=== PATIENT | female | born 2000 | race Caucasian/White ===

== ENCOUNTER 2025-09-27 13:41 | Emergency (ER) | payer OTHER ==
[~2025-09-27] VITALS: Ht 165.1 cm; Wt 64.2 kg
[2025-09-27 14:50] LABS: BASO # 0.0 10^3/uL (0.0-0.2); BASO % 0.6 % (0.0-1.0); EOS # 0.1 10^3/uL (0.0-0.5); EOS % 0.7 % (0.0-3.0); LYMPH # 0.9 10^3/uL (1.5-5.0); LYMPH % 14.0 % (24.0-44.0); MONO # 0.4 10^3/uL (0.0-0.8); MONO % 6.4 % (2.0-8.0); NEUTROPHILS # 5.3 10^3/uL (1.5-8.5); NEUTROPHILS % 78.2 % (36.0-66.0); PLATELET COUNT, AUTOMATED 254 10^3/uL (150-450)
[2025-09-27 15:09] LABS: CALCIUM LEVEL 8.7 MG/DL (8.5-10.1); CARBON DIOXIDE LEVEL 27 MMOL/L (20-31); CHLORIDE LEVEL 104 MMOL/L (98-107); CREATININE FOR GFR 0.60 MG/DL (0.55-1.30); GLOMERULAR FILTRATION RATE > 90.0 (>60); POTASSIUM SERUM 3.9 MMOL/L (3.5-5.1); SODIUM LEVEL 141 MMOL/L (136-145)
[2025-09-27 15:16] LABS: HCG, SERUM QUALITATIVE NEGATIVE (NEGATIVE)
[2025-09-27 15:57] VITALS: TEMP 98.1; O2SAT 98
[2025-09-27] MEDS: NS (Normal Saline) 0.9% 1,000 ML IV ONE (16:15)
[2025-09-27] MEDS: ONDANSETRON 4MG/2ML VIAL IV ONE (16:15)
[2025-09-27] MEDS: PANTOPRAZOLE 40MG VIAL IV ONE (16:15)
[2025-09-27 16:36] LABS: ALT/SGPT 19 U/L (7.0-40); AST/SGOT 22 U/L (<34)
[2025-09-27] MEDS ORDERED: ONDA-282 PO (17:47)
[2025-09-27] MEDS ORDERED: PROT20TA11 PO (17:47)
[2025-09-27] MEDS: ONDANSETRON 4MG ORAL DISINTEGRATING TAB PO ONE (17:50)
[2025-09-27 18:01] VITALS: BP 107/51
== END 2025-09-27 18:05 | disposition home or self-care (01) ==
LOC: M ED 13:41
DX: F10.120 Alcohol abuse with intoxication, uncomplicated (principal); R11.2 Nausea with vomiting, unspecified; Z79.899 Other long term (current) drug therapy
CPT/HCPCS: 80048; 80076; 83690; 84703; 85025; 96361; 96374; 99284; J2405; J2470